=== PATIENT | male | born 1940 | race Caucasian/White ===

== ENCOUNTER 2020-04-20 14:01 | Emergency (ER) | payer OTHER | END 2020-04-20 17:00 | disposition home or self-care (01) | LOC: ER1 14:01 | DX: R33.9 Retention of urine, unspecified (principal); E11.9 Type 2 diabetes mellitus without complications; I10 Essential (primary) hypertension; Z95.1 Presence of aortocoronary bypass graft | CPT/HCPCS: 51702; 81001; 87086; 99283 ==